=== PATIENT | female | born 1940 | race Caucasian/White ===

== ENCOUNTER 2017-01-28 05:00 | Inpatient (IN) | payer OTHER, MEDICARE ==
[2016-12-30 10:26] VITALS: BMI 25.0
--- NOTE | 2016-12-30 10:54 | PAT Medication Instructions ---
Service Date Dec 30, 2016. Current Home Medication List Fish Oil ([place]-3), 1,200 MG PO QAM Levothyroxine Sodium (Levothyroxine Sodium), 1 TAB PO QAM Metoprolol Tartrate (Lopressor) (Lopressor), 100 MG PO BID Multivitamin (Multivitamin), 1 TAB PO QAM [Citricel], 1 DOSE PO PRN Medication Instructions For Your Scheduled Surgery - Hold the following medications 2 weeks prior to surgery: Fish Oil ([place]-3), 1,200 MG PO QAM - Hold the following medications the morning of surgery: Multivitamin (Multivitamin), 1 TAB PO QAM [Citricel], 1 DOSE PO PRN - Take the following medications the morning of surgery with a sip of water: Levothyroxine Sodium (Levothyroxine Sodium), 1 TAB PO QAM Metoprolol Tartrate (Lopressor) (Lopressor), 100 MG PO BID - Take the following medications as scheduled the night before surgery: Metoprolol Tartrate (Lopressor) (Lopressor), 100 MG PO BID If you have any questions please call us at [phone] (Samantha Roberts PA-C) or [phone] or [phone]
--- NOTE | 2016-12-30 11:35 | DIAGNOSTIC IMAGING REPORT ---
CHEST 2 VIEWS ROUTINE CLINICAL HISTORY: pat preoperative evaluation COMPARISON STUDY: No previous studies for comparison. FINDINGS: The bones soft tissues and hemidiaphragms are normal. The cardiomediastinal silhouette is normal. The lungs are clear. The pulmonary vasculature is normal. IMPRESSION: Negative chest. Electronically signed by: Santos Harrison M.D. 12/30/2016 11:34 AM Dictated Date/Time: 12/30/2016 11:32 AM
[2016-12-30 11:59] LABS: BASO % 0.4 %; BASO ABS # 0.02 K/uL (0-0.2); COMPLETE YES; EOS % 1.8 %; HEMATOCRIT 48.1 % (37-47); IG% 0.2 %; LYMPH % 28.3 %; LYMPH ABS # 1.39 K/uL (1.2-3.4); MEAN CELL VOLUME 89.2 fL (80-100); MEAN CORPUSCULAR HGB CONC 34.7 g/dl (32-36); MEAN PLATELET VOLUME 11.7 fL (7.4-10.4); MONO % 11.2 %; NEUT % 58.1 %; PLATELET COUNT 137 K/uL (130-400); RED BLOOD COUNT 5.39 M/uL (4.2-5.4); WHITE BLOOD COUNT 4.91 K/uL (4.8-10.8)
[2016-12-30 12:08] LABS: ESTIMATED AVERAGE GLUCOSE 120 mg/dl; HA1C FLAG Normal (Normal); PROTHROMBIN TIME (PATIENT) 10.7 SECONDS (9.0-12.0)
[2016-12-30 12:10] LABS: URINE APPEARANCE CLEAR (CLEAR); URINE BILIRUBIN NEG (NEG); URINE COLOR YELLOW; URINE NITRITE NEG (NEG); URINE SPECIFIC GRAVITY 1.018 (1.000-1.030); UROBILINOGEN NEG (NEG)
[2016-12-30 12:16] LABS: MANUAL MICROSCOPIC REQUIRED? NO; REVIEW REQ? NO
[2016-12-30 12:57] LABS: BUN/CREATININE RATIO 21.1 (10-20); CALCIUM 9.3 mg/dl (8.5-10.1); CREATININE 0.66 mg/dl (0.60-1.20)
--- NOTE | 2016-12-30 16:29 | History and Physical ---
History & Physical Date Dec 30, 2016. Chief Complaint left knee pain History of Present Illness Lizzie is a pleasant 76-year-old female who presents for preoperative evaluation prior to a left knee replacement. Patient states that they have been having pain in this knee for many years now, which has gradually worsened, it has now gotten to the point it is affecting her daily activities including walking, standing, going up and down steps. Patient has tried and failed conservative measures including oral anti-inflammatories with no relief. At this point in time, patient has failed conservative measures and would like to proceed with a left knee replacement. Past Medical/Surgical History Hypertension Hypothyroidism PAST SURGICAL HISTORY x 3 hysterectomy Colecystectomy Additional History Hepatic Disease: No Hypertension: Yes Heart Disease: No Bleeding Tendencies: No Infectious Diseases: No Allergies Coded Allergies: No Known Allergies (Unverified , 12/30/16) Home Medications Scheduled Fish Oil ([place]-3), 1,200 MG PO QAM Levothyroxine Sodium (Levothyroxine Sodium), 1 TAB PO QAM Metoprolol Tartrate (Lopressor) (Lopressor), 100 MG PO BID Multivitamin (Multivitamin), 1 TAB PO QAM [Citricel], 1 DOSE PO PRN Physical Examination Skin: warm/dry, no rash Eyes: normal inspection, EOMI, sclerae normal ENT: normal ENT inspection, pharynx normal Neck: supple, no adenopathy, trachea midline Respiratory/Chest: lungs clear, normal breath sounds, no respiratory distress Cardiovascular: regular rate, rhythm, no edema, no murmur Abdomen / GI: normal bowel sounds, non tender Addiitonal Comments: Physical Exam Exam Findings Details Knee ROM L * Active ROM - Flexion: 120 degrees, Extension: 0 degrees, Factors: normal, Description: active pain free range of motion. Passive ROM - Flexion: 120 degrees, Extension: 0 degrees, Factors: normal, Description: passive pain free range of motion. Knee ROM R * Active ROM - Flexion: 135 degrees, Extension: 0 degrees, Factors: normal, Description: active pain free range of motion. Passive ROM - Flexion: 135 degrees, Extension: 0 degrees, Factors: normal, Description: passive pain free range of motion. Strength LE Normal Strength Description - Normal lower extremity: Bilateral. Hip : Right: strength is normal, Left: strength is normal. Knee: Right: strength is normal, Left: strength is normal. Ankle/Foot: Right: strength is normal, Left: strength is normal. Knee * Inspection - Gait: Antalgic. Alignment - Right: neutral, Left: varus, Clinical. Ecchymosis - Right: none, Left: none. Effusion - Right: negative, Left : negative. Swelling - Right: none, Left: mild. Flexibility - Right: normal, Left: normal. Maximum tenderness - Right: non-tender, Left: patella. Patella exam - Crepitation - Right: normal, Left: moderate. Patella position - Right: neutral, Left: neutral. Q-angle - Left: Abnormal. Tilt - Right: normal, Left: lateral tilt. Knee Comments The patient has no calf tenderness. Knee Normal Inspection - Atrophy - Right: Absent, Left: Absent. Skin - Right: Normal, Left: Normal. Patella exam - Apprehension - Right: Negative, Left: Negative. Q-angle - Right: Normal. Bebe's - Right: Negative, Left: Negative. [facility]'s - lateral - Right: Negative, Left: Negative. [facility]'s - medial - Right: Negative, Left: Negative. Posterior drawer - Right: Negative, Left: Negative. Reverse pivot-shift - Right: Negative, Left: Negative. Sag sign - Right: Negative, Left: Negative. Anterior drawer - Right: Negative, Left: Negative. Valgus stress - Right: Negative, Left: Negative. Varus stress - Right : Negative, Left: Negative. Extensor lag - Right: Normal, Left: Normal. Neurovascular LE Normal Neurovascular examination including reflexes, sensation , and pulses is within normal limits. LEFT KNEE XRAY Xrays reviewed of the left knee showing findings consistent with degenerative joint disease including joint space narrowing, subchondral sclerosis and peripheral osteophyte formation. no acute bony pathology, overall varus alignment. Impression: degenerative joint disease of the left knee with no acute bony pathology noted. Diagnosis Left Knee DJD -Further care discussed with patient and at this point in time has failed conservative measures and would like to proceed with a left total knee replacement. Plan on discharge will be home with outpatient physical therapy. DVT prophalaxis with TEDs, SCDs and will also place on aspirin 81 mg p.o. b.i.d. for a month postop. Patient will have follow up appointment in our office two weeks post op for staple/suture removal and re-evaluation. Patient otherwise has no other questions or concerns.
[~2017-01-28] VITALS: Ht 167.6 cm; Wt 70.3 kg
[2017-01-28] VITALS (7 sets, daily range): BP systolic 126–146; BP diastolic 58–76; PULSE 54–66; TEMP 36.4–36.9; O2SAT 95–100; Ht 167.6 cm; Wt 70.3 kg
[~2017-01-28 05:00] MED LIST: CITRICEL PO; LEVO88TA3 PO; METO100T14 PO; MULT-506 PO; OMEG10007 PO
[2017-01-28] MEDS ORDERED: DEXAMETHASONE 4 MG TAB PO SCH (06:00)
[2017-01-28] MEDS ORDERED: TRANEXAMIC ACID INJ 1,000 MG in SODIUM CHLORIDE 0.9% 100ML 100 ML IV SCH (06:00)
[2017-01-28] MEDS ORDERED: ACETAMINOPHEN 500 MG TAB PO SCH (06:00)
[2017-01-28] MEDS ORDERED: ROPIVACAINE 5MG/ML 30 ML 150 MG, BUPIVACAINE/EPINEPHR 0.5% MPF 30 ML, KETOROLAC TROMETH... INFIL SCH ×7 (06:00)
[2017-01-28] MEDS ORDERED: FAMOTIDINE 20 MG TAB PO SCH (06:00)
[2017-01-28] MEDS ORDERED: LACTATED RINGER'S 1000ML 1,000 ML IV SCH (06:00)
[2017-01-28] MEDS ORDERED: GABAPENTIN 300 MG CAP PO SCH (06:00)
[2017-01-28] MEDS ORDERED: LACTATED RINGER'S 1000ML IV SCH (06:00)
[2017-01-28] MEDS ORDERED: LACTATED RINGER'S 1000ML 500 ML IV ONE (06:00)
[2017-01-28] MEDS ORDERED: METOCLOPRAMIDE HCL 10 MG TAB PO SCH (06:00)
[2017-01-28] MEDS ORDERED: CEFAZOLIN 2000 MG/60 ML D5W IV SCH (06:00)
[2017-01-28] MEDS ORDERED: CeleBREX 200 MG CAP PO SCH (06:00)
[2017-01-28] MEDS ORDERED: BUPIVACAINE 0.5 % 5 MG/1 ML PF 10ML VIAL ONE (06:20)
[2017-01-28] MEDS ORDERED: BUPIVACAINE 0.25% 30 ML VIAL ONE (06:20)
[2017-01-28] MEDS ORDERED: PROPOFOL IV EMULSION 10 MG/ML 20 ML VIAL IV ONE (06:51)
[2017-01-28] MEDS ORDERED: LIDOCAINE HCL 2% 2 ML VIAL (20MG/ML) ONE (06:51)
[2017-01-28] MEDS ORDERED: FENTANYL CITRATE INJ 50 MCG/1 ML 2 ML VIAL ONE (06:52)
[2017-01-28] MEDS ORDERED: MIDAZOLAM HCL 1 MG/ML 2ML VIAL ONE ×2 (06:52→07:38)
[2017-01-28] MEDS ORDERED: LACTATED RINGER'S 1000ML 1,000 ML IV PRN (06:53)
[2017-01-28] MEDS ORDERED: POVIDONE-IODINE OP SOLN 30 ML BTL ONE (06:59)
[2017-01-28] MEDS ORDERED: ORTHO JOINT ANESTHETIC ONE (06:59)
[2017-01-28] MEDS ORDERED: ONDANSETRON INJ 2 MG/ML 2 ML VIAL IV PRN ×2 (07:00→09:00)
[2017-01-28] MEDS ORDERED: FENTANYL CITRATE INJ 50 MCG/1 ML 2 ML VIAL IV PRN (07:00)
[2017-01-28] MEDS ORDERED: BACITRACIN 50000 UNIT VIAL ONE (07:00)
[2017-01-28] MEDS: TRANEXAMIC ACID INJ 1,000 MG in SODIUM CHLORIDE 0.9% 100ML 100 ML IV SCH ×2 (07:05→10:34)
--- NOTE | 2017-01-28 07:12 | History & Physical Bridge Note ---
H&P Re-Evaluation Bridge Note: I have examined the patient, reviewed the History & Physical and in the interval since the performance of the History & Physical I have noted the following changes of clinical significance: No changes noted
--- NOTE | 2017-01-28 08:21 | [facility] Post Operative Brief Note ---
Immediate Operative Summary Operative Date Jan 28, 2017. Pre-Operative Diagnosis Left knee degenerative joint disease Post-Operative Diagnosis Same as preoperative diagnosis Procedure(s) Performed Left Total Knee Arthroplasty Surgeon Payam Pole Climber Surgeon(s) Santos Burnham PA-C Estimated Blood Loss 5CC Findings severe djd lt knee Specimens A: Left knee bone and tissue Complication(s) None Disposition Recovery Room / PACU
--- NOTE | 2017-01-28 08:34 | OPERATIVE REPORT ---
DATE OF OPERATION: 01/28/2017 PREOPERATIVE DIAGNOSIS: Severe end-stage tricompartmental degenerative joint disease, left knee. POSTOPERATIVE DIAGNOSIS: Severe end-stage tricompartmental degenerative joint disease, left knee. PROCEDURE: Left total knee arthroplasty utilizing Akins \T\ Nephew patient matched block total knee arthroplasty size 4 femur, 3 tibia, 11 poly, and 32 patella, oval. SURGEON: Dr. Kirk Hare. RECORD KEEPER: Santos Burnham, who was necessary for prepping, draping, retraction, wound closure of deep fascia, subQ and skin and was necessary for the case. ESTIMATED BLOOD LOSS: 5 mL. COMPLICATIONS: None. TOURNIQUET TIME: 50 minutes. HISTORY OF PRESENT ILLNESS: The patient presents as a very pleasant 77-year-old white female with DJD of her left knee. She has failed attempts at conservative management including physical therapy, anti-inflammatories, relative rest, activity modification, corticosteroid injections, and viscosupplementation and presents today for left total knee arthroplasty failing attempts of other conservative managements. DESCRIPTION OF PROCEDURE: The patient was properly prepped and draped in supine position for total knee arthroplasty after identifying the appropriate surgical site. An anterior midline incision was made through the subcutaneous tissues down to the region of the extensor mechanism. A medial parapatellar incision was subsequently made. Meticulous hemostasis was obtained and performed at all times. The patella having been subluxed lateralward, medial and lateral meniscal remnants were excised. The patellar cut was then initially made and was sized to the appropriate size. After subluxing the tibia forward the appropriate meniscal fragments having been removed the distal femur was then cut first utilizing a Akins and Nephew block. The distal femoral cuts and chamfer cuts were all made under direct visualization and the proximal tibial osteotomy cut was also made utilizing Akins and Nephew blocks and checked with an extramedullary guide. The appropriate trial components on the femur and tibia were placed. Appropriate trial spacers were used to check flexion and extension gaps. With flexion and extension gaps being equal, the components were then subsequently after thorough irrigation and debridement lavage components were then subsequently cemented in the following order: femur, tibia and patella. Exparel was used for intraoperative anesthesia, the medial parapatellar incision was closed utilizing #1 Vicryl, subQ was closed with 2-0 Vicryl, skin was closed with skin clips. A sterile compression dressing was placed. The patient was taken to recovery room in stable condition. Due to the complex nature of the procedure, the entire surgery was performed with the operational assistance of MALENA Amato. The billing assistant, under direct supervision, was involved in the actual performance of all aspects of the surgical procedure including hemostasis, tissue retraction and incision, instrument management, patient positioning, and wound closure. I attest to the content of the Intraoperative Record and any orders documented therein. Any exceptio ns are noted below.
[2017-01-28] MEDS ORDERED: MAGNESIUM HYDROXIDE SUSP 30 ML UDC PO PRN (09:00)
[2017-01-28] MEDS ORDERED: BISACODYL 10 MG SUPP PR PRN (09:00)
[2017-01-28] MEDS ORDERED: MoRPHine SULFATE 2 MG/ML CARP IV PRN (09:00)
[2017-01-28] MEDS ORDERED: SOD PHOSPHATE/SOD BIPHOSPHATE ENEMA 132 ML BTL PR PRN (09:00)
[2017-01-28] MEDS ORDERED: OXYCODONE HCL IR 5 MG TAB (IMMEDIATE RELEASE) PO PRN (09:00)
[2017-01-28] MEDS ORDERED: CALCIUM POLYCARBOPHIL 1 TAB PO PRN (09:00)
[2017-01-28] MEDS ORDERED: KETOROLAC TROMETHAMINE 15 MG/ML VIAL IV. PRN (09:00)
[2017-01-28] MEDS ORDERED: ALUMINUM/MAGNESIUM/SIMETH (MAALOX MAX) 30 ML UDC PO PRN (09:00)
--- NOTE | 2017-01-28 09:26 | DIAGNOSTIC IMAGING REPORT ---
LEFT KNEE 1 OR 2 VIEWS ROUTINE CLINICAL HISTORY: Degenerative arthritis. Postop study. COMPARISON: None. DISCUSSION: There are postsurgical changes of a total left knee arthroplasty and patellar resurfacing. The femoral and tibial components appear well seated. Overlying surgical drains are evident. There is air within soft tissues consistent with recent surgery. IMPRESSION: Postsurgical changes of a total left knee arthroplasty. Electronically signed by: Jerrod Barajas M.D. 01/28/2017 9:24 AM Dictated Date/Time: 01/28/2017 9:23 AM
--- NOTE | 2017-01-28 09:47 | Anesthesiology Progress Note ---
Anesthesia Post Op Note Date & Time Jan 28, 2017 at 09:45 Vital Signs Pain Intensity: 0 Vital Signs Past 12 Hours Date Time Temp Pulse Resp B/P Pulse Ox O2 Delivery O2 Flow Rate FiO2 01/28/17 09:35 36.0 60 16 119/59 97 Nasal Cannula 2 01/28/17 09:25 62 16 112/59 98 Nasal Cannula 2 01/28/17 09:15 63 16 109/58 100 Mask 10 01/28/17 09:05 66 15 119/60 100 Mask 10 01/28/17 08:57 36.6 66 18 115/60 100 Mask 10 01/28/17 05:40 36.9 60 20 96 Room Air Notes Mental Status: alert / awake / arousable, participated in evaluation Pt Amnestic to Procedure: No (recall as expected) Nausea / Vomiting: adequately controlled Pain: adequately controlled Airway Patency, RR, SpO2: stable & adequate BP & HR: stable & adequate Hydration State: stable & adequate Neuraxial Anesthesia: was administered, sensory block is resolving Anesthetic Complications: no major complications apparent
[2017-01-28] MEDS ORDERED: MoRPHine SULFATE 10 MG/ML CARP/VIAL IV PRN (10:30)
[2017-01-28] MEDS ORDERED: MoRPHine SULFATE 4 MG/ML 1 ML CARP\\VIAL IV PRN (10:30)
[2017-01-28] MEDS: MULTIVITAMIN TAB PO SCH (10:35)
[2017-01-28] MEDS: PANTOprazole SOD 40 MG TAB PO SCH (10:35)
[2017-01-28] MEDS: DOCUSATE SODIUM 100 MG CAP PO SCH ×2 (10:35→20:52)
[2017-01-28] MEDS: LEVOTHYROXINE 88 MCG TAB PO SCH (10:48)
[2017-01-28] MEDS: D5W AND 1/2NSS + 20MEQ KCL 1,000 ML IV SCH ×2 (10:48→20:48)
[2017-01-28] MEDS: FERROUS GLUCONATE 324 MG TAB PO SCH ×2 (12:36→18:09)
[2017-01-28] MEDS: ACETAMINOPHEN 500 MG TAB PO SCH ×2 (13:55→21:54)
[2017-01-28] MEDS: CEFAZOLIN IV 1,000 MG in DEXTROSE 5% 50ML 50 ML IV SCH ×2 (16:09→23:31)
[2017-01-28] MEDS: ASPIRIN 81 MG ECTAB PO SCH (20:51)
[2017-01-28] MEDS: OXYCODONE HCL 10 MG TABCR (OXYCONTIN) PO SCH (20:51)
[2017-01-28] MEDS: SENNA 8.6 MG TAB PO SCH (20:52)
[2017-01-28] MEDS: METOPROLOL TARTRATE 100 MG TAB PO SCH (20:53)
[2017-01-29] VITALS (7 sets, daily range): BP systolic 127–162; BP diastolic 63–78; PULSE 56–69; TEMP 36.6–37; O2SAT 97–100
[2017-01-29] MEDS: LEVOTHYROXINE 88 MCG TAB PO SCH (05:56)
[2017-01-29] MEDS: ACETAMINOPHEN 500 MG TAB PO SCH ×3 (05:57→21:10)
[2017-01-29] MEDS: D5W AND 1/2NSS + 20MEQ KCL 1,000 ML IV SCH (05:57)
[2017-01-29 06:23] LABS: HEMATOCRIT 42.1 % (37-47); MEAN CELL VOLUME 89.4 fL (80-100); MEAN CORPUSCULAR HEMOGLOBIN 30.1 pg (25-34); MEAN CORPUSCULAR HGB CONC 33.7 g/dl (32-36); MEAN PLATELET VOLUME 10.9 fL (7.4-10.4); PLATELET COUNT 147 K/uL (130-400); RED BLOOD COUNT 4.71 M/uL (4.2-5.4); WHITE BLOOD COUNT 12.45 K/uL (4.8-10.8)
[2017-01-29 06:39] LABS: PROTHROMBIN TIME (PATIENT) 10.5 SECONDS (9.0-12.0)
[2017-01-29 07:34] LABS: BUN/CREATININE RATIO 22.5 (10-20); CALCIUM 8.9 mg/dl (8.5-10.1); CREATININE 0.76 mg/dl (0.60-1.20); POTASSIUM 4.2 mmol/L (3.5-5.1)
[2017-01-29] MEDS: OXYCODONE HCL 10 MG TABCR (OXYCONTIN) PO SCH ×2 (08:24→21:00)
[2017-01-29] MEDS: FERROUS GLUCONATE 324 MG TAB PO SCH ×3 (08:28→18:43)
[2017-01-29] MEDS: MULTIVITAMIN TAB PO SCH (08:29)
[2017-01-29] MEDS: DOCUSATE SODIUM 100 MG CAP PO SCH ×2 (08:29→21:00)
[2017-01-29] MEDS: ASPIRIN 81 MG ECTAB PO SCH ×2 (08:29→21:00)
[2017-01-29] MEDS: CeleBREX 200 MG CAP PO SCH ×2 (08:29→21:00)
[2017-01-29] MEDS: PANTOprazole SOD 40 MG TAB PO SCH (08:29)
[2017-01-29] MEDS: METOPROLOL TARTRATE 100 MG TAB PO SCH ×2 (08:30→21:00)
--- NOTE | 2017-01-29 10:57 | Anesthesiology Progress Note ---
Anesthesia Post Op Note Date & Time Jan 29, 2017 at 10:56 Vital Signs Pain Intensity: 0.0 Vital Signs Past 12 Hours Date Time Temp Pulse Resp B/P Pulse Ox O2 Delivery O2 Flow Rate FiO2 01/29/17 08:00 36.7 67 16 127/71 97 Room Air 01/29/17 07:50 Room Air 01/29/17 04:03 36.8 59 16 146/66 99 Room Air 01/28/17 23:33 Room Air 01/28/17 23:33 36.5 66 16 126/58 97 Room Air Notes Mental Status: alert / awake / arousable, participated in evaluation Pt Amnestic to Procedure: Yes Nausea / Vomiting: adequately controlled Pain: adequately controlled Airway Patency, RR, SpO2: stable & adequate BP & HR: stable & adequate Hydration State: stable & adequate Neuraxial Anesthesia: was administered, sensory block resolved Anesthetic Complications: no major complications apparent
--- NOTE | 2017-01-29 11:30 | Orthopedic Progress Note ---
Orthopedic Progress Note Date of Service Jan 29, 2017. Subjective Post OP Day: 1 (s/p Left TKA) Reports: feeling well, pain controlled w PO medications, Denies: SOB, calf pain , chest pain, complaints, light headedness, nausea / vomiting Objective calves soft nontender, N/V intact, capillary refill less than 2 sec., dressing C /D/I, A&O x3, toes mobile, hemovac drainage (200cc/8 hours) Date Time Temp Pulse Resp B/P Pulse Ox O2 Delivery O2 Flow Rate FiO2 01/29/17 08:00 36.7 67 16 127/71 97 Room Air 01/29/17 07:50 Room Air 01/29/17 07:45 Room Air 01/29/17 04:03 36.8 59 16 146/66 99 Room Air 01/28/17 23:33 Room Air 01/28/17 23:33 36.5 66 16 126/58 97 Room Air 01/28/17 15:56 Room Air 01/28/17 15:09 36.5 60 16 126/68 96 Room Air 01/28/17 11:45 64 17 146/68 100 Nasal Cannula 2.0 Laboratory Results 24 Hours: Test 01/29/17 05:57 01/29/17 06:07 Prothromb Time International Ratio 1.0 Prothrombin Time 10.5 SECONDS Hematocrit 42.1 % Hemoglobin 14.2 g/dL Assessment & Plan Assessment: POD #1 s/p Left TKA -pt/ot -dvt proph with althea/scd/asa 81mg bid -plan for d/c home with OPPT @[facility] when stable Discharge Planning Discharge Planning: home with oppt DVT Prophylaxis: TEDs, SCDs, ASA Therapy: Physical Therapy
--- NOTE | 2017-01-29 14:19 | Discharge Instructions ---
Discharge Instructions Date of Service Jan 29, 2017. Admission Reason for Admission: Left Knee Osteoarthritis Discharge Discharge Diagnosis / Problem: left total knee replacement Discharge Goals Goal(s): Decrease discomfort, Improve function, Increase independence Activity Recommendations Activity Limitations: as noted below Weightbearing Status: Left weightbearing (as tolerated) . Instructions / Follow-Up Instructions / Follow-Up ACTIVITY RECOMMENDATIONS: SELF CARE INSTRUCTIONS AFTER TOTAL KNEE REPLACEMENT A. You may need to continue a physical therapy program after discharge from the hospital. There are several options available to you. Your doctor will assist you in selecting the best one for you. 1. An out-patient facility 2 to 3 times a week for therapy or home therapy. 2. Continue working on all exercises taught to you in the hospital. Your goals should be to increase bending of your knee to 90 degrees and beyond and to fully straighten your knee. B. You may progress at your own pace from walking with a walker or crutches to a cane; then to no assistive devices. C. Make walking a part of your daily routine. Be up as much as comfortable with rest periods throughout the day. Rest with leg elevation is very important. Use the ice wrap frequently for the first 3-4 weeks. D. There are no restrictions on activities. You may ride in a car, shop, participate in fisheries diver and all social activities. E. Wear the long elastic stockings (CHRISTELLE hose) 20 hours a day for 2 weeks after surgery. They can be removed several times a day for laundering and for a bath. F. You may shower, no tub baths until cleared by your doctor. SPECIAL CARE INSTRUCTIONS: VERY IMPORTANT TO READ AND REVIEW A. There are a few signs you need to watch for after you are home. Call [facility] [place] if you notice any of the followin. Increased severe knee pain. Some pain is expected especially when you exercise. 2. Increased swelling in your leg or knee; pain or swelling of the calf muscle in either lower leg. 3. Any fluid drainage from the incision. 4. Shortness of breath or chest pain. B. Please call [facility] at if you have any concerns or questions about your operation or recovery. The doctor or his nurse will return your call promptly. C. You must take antibiotics before dental work, bladder, bowel or other surgery. Your doctor will provide you with a permanent care to carry describing this precaution. IMPORTANT: * REMEMBER TO TAKE ASPIRIN, 81 MG, TWICE DAILY FOR 4 WEEKS UNLESS OTHERWISE DIRECTED. THIS IS YOUR BLOOD THINNER. * HIGH RISK PATIENTS MAY BE PRESCRIBED A STRONGER BLOOD THINNER. THIS WILL BE PROVIDED AT DISCHARGE. * CALL IF INCREASED PAIN, REDNESS, DRAINAGE OR FEVER GREATER THAT 101. * WEAR CHRISTELLE HOSE 20 HOURS PER DAY FOR 2 WEEKS. * DERMABOND Prineo- This is a mesh tape dressing that is covered with glue. It should remain in place until the incision is properly healed, usually 10-14 days. This dressing is designed to naturally slough off. You may trim the excess mesh tape as it peels off. Incision may be briefly wet in a shower. Dry immediately by blotting with a clean, dry towel. Do not bath or swim until instructed by your doctor. Do not scratch, rub, or pick at the dressing. Do not apply any topical ointments or lotions until dressing is completely removed and/or instructed by your doctor. There may be a small piece of suture material at one end of your incision. Do not pull or trim this. If it is bothersome or catching on clothing, you may cover it with a band-aid. FOLLOW UP VISIT: If appointment is not already scheduled: Please call [facility] [place] to make a follow-up appointment for 2 weeks after your surgery at . Current Hospital Diet Patient's current hospital diet: Regular Diet Discharge Diet Recommended Diet: Regular Diet Procedures Procedures Performed: Left Total Knee Arthroplasty Pending Studies Studies pending at discharge: no Laboratory Results Hemoglobin A1c Test 12/30/16 11:01 Range/Units Estimated Average Glucose 120 mg/dl Hemoglobin A1c 5.8 H 4.5-5.6 % Medical Emergencies . Who to Call and When: Medical Emergencies: If at any time you feel your situation is an emergency, please call 911 immediately. . Non-Emergent Contact Non-Emergency issues call your: Primary Care Provider, Surgeon . "Provider Documentation" section prepared by Santos Burnham. . VTE Core Measure Inpt VTE Proph given/why not?: Other Anticoagulation (ASA 81mg po bid x 1 month ), T.E.D. Stockings, SCD's [place] Drug Monitoring Program Search Results: patient reviewed within database, no issues identified
[2017-01-29] MEDS: SENNA 8.6 MG TAB PO SCH (21:00)
[2017-01-30] MEDS: LEVOTHYROXINE 88 MCG TAB PO SCH (05:33)
[2017-01-30] MEDS: ACETAMINOPHEN 500 MG TAB PO SCH (05:33)
[2017-01-30 06:12] VITALS: BP 148/71; PULSE 80; TEMP 36.7; O2SAT 92
[2017-01-30] MEDS: PANTOprazole SOD 40 MG TAB PO SCH (09:00)
[2017-01-30] MEDS: OXYCODONE HCL 10 MG TABCR (OXYCONTIN) PO SCH (09:00)
[2017-01-30] MEDS: DOCUSATE SODIUM 100 MG CAP PO SCH (09:03)
[2017-01-30] MEDS: METOPROLOL TARTRATE 100 MG TAB PO SCH (09:03)
[2017-01-30] MEDS: CeleBREX 200 MG CAP PO SCH (09:04)
[2017-01-30] MEDS: ASPIRIN 81 MG ECTAB PO SCH (09:04)
[2017-01-30] MEDS: FERROUS GLUCONATE 324 MG TAB PO SCH (09:04)
[2017-01-30] MEDS: MULTIVITAMIN TAB PO SCH (09:04)
[2017-01-30 09:05] VITALS: BP 122/77; PULSE 82
[2017-01-30 10:06] VITALS: BP 122/77; PULSE 82; TEMP 36.7; O2SAT 92
[2017-01-30] MEDS ORDERED: ACET-1138 PO (10:07)
[2017-01-30] MEDS ORDERED: SNK PO (10:07)
[2017-01-30] MEDS ORDERED: ULT50X PO (10:07)
[2017-01-30] MEDS ORDERED: ASPEC81 PO (10:07)
[2017-01-30] MEDS ORDERED: CLB200 PO (10:07)
--- NOTE | 2017-01-30 10:17 | Orthopedic Progress Note ---
Orthopedic Progress Note Date of Service Jan 30, 2017. Subjective Post OP Day: 2 Reports: feeling well, Denies: complaints Additional Notes: Nursing related that patient was somewhat confused yesterday but much more lucid today. Pt sitting up in chair at bedside. No complaints. Oriented x 3. Pain controlled using Tylenol, Celebrex. Does not want any narcotics at this time. Objective calves soft nontender, N/V intact, capillary refill less than 2 sec., incision C /D/I, A&O x3, toes mobile Date Time Temp Pulse Resp B/P Pulse Ox O2 Delivery O2 Flow Rate FiO2 01/30/17 10:06 36.7 82 16 92 Room Air 01/30/17 09:05 82 122/77 01/30/17 07:15 Room Air 01/30/17 06:12 36.7 80 16 148/71 92 Room Air 01/29/17 23:05 37.0 68 16 159/73 98 Room Air 01/29/17 21:06 69 159/63 01/29/17 19:40 Room Air 01/29/17 15:09 36.6 59 18 162/77 100 Room Air 01/29/17 13:38 36.7 56 18 127/66 99 Room Air 01/29/17 11:47 60 100 Assessment & Plan Assessment: POD #2 s/p Left TKA -pt/ot -dvt proph with althea/scd/asa 81mg bid -plan for d/c home with OPPT @[facility] today Plan: Discussed pain control for home use. Pt agreeable to take a Tramadol Rx and use it if she needs it. For now, she will continue with Tylenol and Celebrex. Inhouse Planning Pain Management: Celebrex, PO Tylenol DVT Prophylaxis: TEDs, SCDs, ASA Discharge Planning Discharge Planning: home with oppt Pain Management: Celebrex, Ultram, PO Tylenol DVT Prophylaxis: TEDs, ASA Therapy: Physical Therapy
--- NOTE | 2017-01-30 18:58 | Discharge Summary ---
Orthopedic Discharge Summary Admission Date/Reason Jan 28, 2017 at 06:00 Left Knee Osteoarthritis. Discharge Date/Disposition Jan 30, 2017 Home Diagnosis Principal Diagnosis: left knee osteoarthritis Secondary Diagnoses/Problems: Hypertension Hypothyroidism Procedure(s) Performed PROCEDURE: Left total knee arthroplasty utilizing Akins \T\ Nephew patient matched block total knee arthroplasty size 4 femur, 3 tibia, 11 poly, and 32 patella, oval. Consultations NONE Medication Reconciliation New Medications: Tramadol HCl (Tramadol HCl) 50 Mg Tab 1-2 TABS PO Q4H, #60 Acetaminophen (Tylenol Extra Strength) 500 Mg Tab 1000 MG PO Q8H for 30 Days, #180 TAB Aspirin (Aspirin EC Low Dose) 81 Mg Ectab 81 MG PO BID for 30 Days Celecoxib (Celebrex) 200 Mg Cap 200 MG PO BID, #60 CAP Senna (Senna Lax) 8.6 Mg Tab 17.2 MG PO HS, #30 TAB Continued Medications: Fish Oil (Peerless-3) 1 Ea Cap 1200 MG PO QAM, CAP Levothyroxine Sodium (Levothyroxine Sodium) 88 Mcg Tab 1 TAB PO QAM for 90 Days, #90 TAB 3 Refills Metoprolol Tartrate (Lopressor) (Lopressor) 100 Mg Tab 100 MG PO BID, TAB Multivitamin (Multivitamin) Tab 1 TAB PO QAM, TAB [Citricel] () 1 DOSE PO PRN Admission Physical Exam As per Admitting History & Physical. Hospital Course Patient was a same day admission after undergoing a successful left TKA. she tolerated the procedure well. Post-operatively, her activity was progressed and well tolerated. Please refer to daily progress notes and PT notes for complete details. After exam on 01/30/17, patient felt to be stable for discharge home with OPPT. Patient will f/u in the office in 2 weeks for further evaluation including x-rays and incision check, sooner if having any issues or concerns. Below are pertinent labs/studies during their hospital stay: Last Resulted CBC 01/29/17 06:07 Last Resulted BMP 01/29/17 06:07 Last Vital Signs Documentation Date Time Temp Pulse Resp B/P Pulse Ox O2 Delivery O2 Flow Rate FiO2 01/30/17 10:06 36.7 82 16 92 Room Air 01/30/17 09:05 122/77 01/28/17 11:45 2.0 Discharge Instructions ACTIVITY RECOMMENDATIONS: SELF CARE INSTRUCTIONS AFTER TOTAL KNEE REPLACEMENT A. You may need to continue a physical therapy program after discharge from the hospital. There are several options available to you. Your doctor will assist you in selecting the best one for you. 1. An out-patient facility 2 to 3 times a week for therapy or home therapy. 2. Continue working on all exercises taught to you in the hospital. Your goals should be to increase bending of your knee to 90 degrees and beyond and to fully straighten your knee. B. You may progress at your own pace from walking with a walker or crutches to a cane; then to no assistive devices. C. Make walking a part of your daily routine. Be up as much as comfortable with rest periods throughout the day. Rest with leg elevation is very important. Use the ice wrap frequently for the first 3-4 weeks. D. There are no restrictions on activities. You may ride in a car, shop, participate in vest finisher and all social activities. E. Wear the long elastic stockings (CHRISTELLE hose) 20 hours a day for 2 weeks after surgery. They can be removed several times a day for laundering and for a bath. F. You may shower, no tub baths until cleared by your doctor. SPECIAL CARE INSTRUCTIONS: VERY IMPORTANT TO READ AND REVIEW A. There are a few signs you need to watch for after you are home. Call [facility] if you notice any of the followin. Increased severe knee pain. Some pain is expected especially when you exercise. 2. Increased swelling in your leg or knee; pain or swelling of the calf muscle in either lower leg. 3. Any fluid drainage from the incision. 4. Shortness of breath or chest pain. B. Please call [facility] at if you have any concerns or questions about your operation or recovery. The doctor or his nurse will return your call promptly. C. You must take antibiotics before dental work, bladder, bowel or other surgery. Your doctor will provide you with a permanent care to carry describing this precaution. IMPORTANT: * REMEMBER TO TAKE ASPIRIN, 81 MG, TWICE DAILY FOR 4 WEEKS UNLESS OTHERWISE DIRECTED. THIS IS YOUR BLOOD THINNER. * HIGH RISK PATIENTS MAY BE PRESCRIBED A STRONGER BLOOD THINNER. THIS WILL BE PROVIDED AT DISCHARGE. * CALL IF INCREASED PAIN, REDNESS, DRAINAGE OR FEVER GREATER THAT 101. * WEAR CHRISTELLE HOSE 20 HOURS PER DAY FOR 2 WEEKS. * DERMABOND Prineo- This is a mesh tape dressing that is covered with glue. It should remain in place until the incision is properly healed, usually 10-14 days. This dressing is designed to naturally slough off. You may trim the excess mesh tape as it peels off. Incision may be briefly wet in a shower. Dry immediately by blotting with a clean, dry towel. Do not bath or swim until instructed by your doctor. Do not scratch, rub, or pick at the dressing. Do not apply any topical ointments or lotions until dressing is completely removed and/or instructed by your doctor. There may be a small piece of suture material at one end of your incision. Do not pull or trim this. If it is bothersome or catching on clothing, you may cover it with a band-aid. FOLLOW UP VISIT: If appointment is not already scheduled: Please call [facility] to make a follow-up appointment for 2 weeks after your surgery at .
== END 2017-01-30 12:10 | disposition home or self-care (01) | DRG 470 ==
LOC: ENRESERVDT → ENRESERVTM → C.ACU 05:00 → C.3E 06:00
PROVIDERS: ADMIT Orthopaedic Surgery; ATTEND Orthopaedic Surgery
PROC: 0SRD0J9 Replacement of Left Knee Joint with Synthetic Substitute, Cemented, Open Approach (ICD-10-PCS; principal; 2017-01-28 07:15)
DX: M17.12 Unilateral primary osteoarthritis, left knee (principal); I10 Essential (primary) hypertension; E03.9 Hypothyroidism, unspecified; Z79.899 Other long term (current) drug therapy